=== PATIENT | male | born 1970 | race Hispanic/Latino ===

== ENCOUNTER 2017-11-17 16:09 | Emergency (ER) | payer SELFPAY | END 2017-11-17 17:16 | disposition home or self-care (01) | LOC: ERS 16:09 | DX: B86 Scabies (principal); L73.9 Follicular disorder, unspecified; E78.5 Hyperlipidemia, unspecified; F41.9 Anxiety disorder, unspecified; F32.9 Major depressive disorder, single episode, unspecified | CPT/HCPCS: 99282 ==

== ENCOUNTER 2017-12-25 17:26 | Emergency (ER) | payer SELFPAY | END 2017-12-25 18:51 | disposition home or self-care (01) | LOC: ERS 17:26 | DX: J06.9 Acute upper respiratory infection, unspecified (principal); E78.5 Hyperlipidemia, unspecified; F32.9 Major depressive disorder, single episode, unspecified; F41.9 Anxiety disorder, unspecified; Z85.47 Personal history of malignant neoplasm of testis | CPT/HCPCS: 99283 ==